=== PATIENT | female | born 2005 | race Caucasian/White ===

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

== ENCOUNTER 2024-09-17 12:54 | Emergency (ER) | payer OTHER ==
[~2024-09-17] VITALS: Ht 165.1 cm; Wt 77.0 kg
[2024-09-17] VITALS (7 sets, daily range): BP systolic 106–130; BP diastolic 66–83
[2024-09-17] MEDS ORDERED: ONDANSETRON HCl 4 MG/2 ML SDV IV ONE (14:10)
[2024-09-17] MEDS ORDERED: SODIUM CHLORIDE 0.9% 1,000 ML IV ONE (14:10)
[2024-09-17] MEDS ORDERED: LOPERAMIDE HCL 2 MG CAP PO ONE (14:10)
[2024-09-17 14:37] LABS: BASO% 0.2 % (0-3); EOS% 0.2 % (0-8); HEMATOCRIT 36.6 % (37.0-47.0); HEMOGLOBIN 11.5 g/dl (12.0-16.0); IMMATURE GRANULOCYTES 0.4 % (0.0-5.0); LYMPH% 14.7 % (15-41); MEAN CELL VOLUME 79.6 fL CALC (80.0-100.0); MEAN CORPUSCULAR HGB CONC 31.4 g/dL CAL (32.0-36.0); MONO% 4.2 % (2-13); NEUT# 4.36 thou/uL (2.00-7.15); NEUT% 80.3 % (42-76); RED BLOOD COUNT 4.6 mill/uL (4.20-5.60); RED CELL DISTRI WIDTH 15.6 % (11.5-15.5)
[2024-09-17 14:38] LABS: URINE BLOOD DIPSTICK Large (NEGATIVE); URINE GLUCOSE - DIPSTICK Negative (NEGATIVE); URINE KETONE 15 mg/dL (NEGATIVE); URINE LEUK ESTERASE Negative (NEGATIVE); URINE NITRITE - DIPSTICK Negative (Negative); URINE PROTEIN - DIPSTICK >=300 mg/dL (NEG-TRACE); URINE SPECIFIC GRAVITY >=1.030
[2024-09-17 14:48] LABS: URINE COLOR Red
[2024-09-17 14:55] LABS: URINE RBC TNTC RBC/hpf (0-5)
[2024-09-17 14:59] LABS: URINE AMORPH SEDIMENT MANY hpf (NONE-FEW); URINE BACTERIA RARE hpf; URINE SQUAMOUS EPITHELIAL CELL RARE EPI/hpf (0-FEW); URINE WBC 0-2 WBC/hpf (0-5)
[2024-09-17 15:02] LABS: ALBUMIN 4.6 g/dL (3.2-5.0); BILIRUBIN, TOTAL 0.5 mg/dL (0.02-1.3); CREATININE 0.6 mg/dL (0.5-1.0); POTASSIUM 4.1 mmol/l (3.5-5.1); TOTAL PROTEIN 7.9 g/dL (6.3-8.2)
[2024-09-17] MEDS ORDERED: KETOROLAC TROMETHAMINE 30 MG/ML SDV IV ONE (15:20)
[2024-09-17] MEDS ORDERED: NAPROXEN375 MG PO (15:22)
== END 2024-09-17 15:50 | disposition home or self-care (01) | DRG 761 ==
LOC: ED 12:54
PROVIDERS: Family Medicine
DX: N94.6 Dysmenorrhea, unspecified (principal); D75.9 Disease of blood and blood-forming organs, unspecified; C80.1 Malignant (primary) neoplasm, unspecified
CPT/HCPCS: J2405